=== PATIENT | male | born 1960 | race Caucasian/White ===

== ENCOUNTER → 2020-01-23 | Outpatient (CLI) | payer OTHER | LOC: LAB 13:45 | PROVIDERS: ATTEND Urology | DX: R97.20 Elevated prostate specific antigen [PSA] (principal) ==

== ENCOUNTER 2020-02-13 05:38 | Day surgery (SDC) | payer OTHER ==
[2020-02-13] MEDS ORDERED: LACTATED RINGERS 1,000 ML ONE (06:13)
[2020-02-13] MEDS ORDERED: LIDOCAINE 1% 10 ML VIAL INJ ONE (07:00)
[2020-02-13] MEDS ORDERED: GLYCOPYRROLATE 0.2 MG/ML VIAL ONE (07:00)
[2020-02-13] MEDS ORDERED: PROPOFOL 200 MG/20 ML VIAL IV ONE (07:00)
--- NOTE | 2020-02-13 09:01 | OP ---
DATE OF PROCEDURE: 02/13/20 PREOPERATIVE DIAGNOSIS: 1. Colorectal cancer screen, average risk. POSTOPERATIVE DIAGNOSIS: 1. Splenic flexure polyp status post resection and retrieval. 2. Internal hemorrhoids, grade 1. 3. Few small diverticula in the sigmoid colon. PROCEDURE: 1. Colonoscopy. SURGEON: Fransico Hillman MD. ANESTHESIA: MAC. PROCEDURE: Informed consent was obtained prior to the procedure. The preprocedure cardiopulmonary assessment was satisfactory. The patient was placed in the left lateral decubitus position and was sedated by the anesthesia team. The tip of the Olympus colonoscope was inserted in the rectum and guided through the entire colon under direct visualization. The ileocecal valve and appendiceal orifice were identified. These appeared normal. The colonoscopy prep was good Slow withdrawal showed evidence of a 3 mm polyp in the splenic flexure that was resected and retrieved using a cold snare. There were a few small diverticula in the sigmoid colon. Continuation of withdrawal showed evidence of internal hemorrhoids, grade 1. No other abnormalities were identified during this colonoscopy. Retroflexion in the right colon was done and appeared normal. The scope was then withdrawn from the patient and the procedure was terminated. RECOMMENDATION: 1. Followup pathology. 2. Repeat colonoscopy in 5 to 10 days based on pathology. 3. FIT in 3 years and yearly until next recommended colonoscopy. 4. Followup in GI clinic as needed. 5. Go to the Emergency Room if fever, shortness of breath, bleeding, chest pain or any other abnormal symptoms occur. #[id number] cc: Harvey Marte MD MTDD
[2020-02-13 10:11] VITALS: BP 132/74; TEMP 96.7; O2SAT 97
== END 2020-02-13 10:03 | disposition home or self-care (01) ==
LOC: AMB 05:38
DX: Z12.11 Encounter for screening for malignant neoplasm of colon (principal); K63.5 Polyp of colon; K64.0 First degree hemorrhoids; K57.30 Diverticulosis of large intestine without perforation or abscess without bleeding; Z79.899 Other long term (current) drug therapy
CPT/HCPCS: 00812; 45385; J3490; J7120

== ENCOUNTER → 2020-08-06 | Outpatient (CLI) | payer BC | LOC: GMAE 10:56 | PROVIDERS: ATTEND Family Medicine | DX: Z00.00 Encounter for general adult medical examination without abnormal findings (principal) ==